=== PATIENT | female | born 1955 ===

== ENCOUNTER 2017-02-27 13:11 | Day surgery (SDC) | payer OTHER ==
[2017-02-27] MEDS ORDERED: Lidocaine 2% Inj (20ml) ONE (14:19)
[2017-02-27] MEDS ORDERED: Iodixanol 320 MG/ML 200 ML BOTTLE IV ONE (14:20)
[2017-02-27] MEDS ORDERED: Midazolam 2 MG/2 ML VIAL ONE (14:20)
[2017-02-27] MEDS ORDERED: Iohexol 350mgl/ml 50 ML ONE (14:20)
[2017-02-27 16:03] VITALS: BMI 27.4
[2017-02-27] MEDS ORDERED: Sodium Chloride 0.9% 1,000 ML IV SCH (17:30)
--- NOTE | 2017-02-27 17:30 | CP.SDSHP ---
Same Day Surgery H & P - History Proposed Procedure: please see enclosed H&P - Allergies Allergies: Allergies No Known Allergies Allergy (Verified 02/26/17 11:08) Short Stay Discharge - Short Stay Discharge Admitting Diagnosis/Reason for Visit: CHEST PAIN, TIA, ANXIETY Disposition: HOME/ ROUTINE
--- NOTE | 2017-02-27 17:38 | CP.PCM.PN ---
Subjective - Date & Time of Evaluation Date of Evaluation: 02/27/17 Time of Evaluation: 17:35 - Subjective Subjective: patient is s/p cardiac cath. patent stents. Objective - Medications Medications: Current Medications Sodium Chloride (Sodium Chloride 0.9%) 1,000 mls @ 100 mls/hr IV .Q10H ELOISE
[2017-02-27] MEDS ORDERED: Oxycodone/Acetaminophen 5/325 mg Tab PO STA (20:34)
[2017-02-27 23:19] VITALS: RESP 20; TEMP 98.1
[2017-02-27 23:33] VITALS: BP 153/82; PULSE 87; O2SAT 96
--- NOTE | 2017-03-01 10:35 | CARD ---
APPROVED REPORT Procedure(s) performed: Selective Right and Left Coronary Angiography Left Ventriculogram HISTORY 7 days), previous CVA remote >= 2 weeks, diabetes mellitus with insulin treatment , previous diagnostic cath, previous PCI (The PCI date was 10/07/2014), hypertension , dyslipidemia , cerebrovascular disease . INDICATION The indication(s) include : unstable angina . CASE TECHNIQUE The patient was brought electively to the Cardiac Catheterization Laboratory in a fasting state and was prepped and draped in a sterile manner. The was infiltrated with 2% Lidocaine subcutaneous without difficulty. Coronary angiography was performed using coronary diagnostic catheters. The left coronary system was accessed and visualized with a 6 Fr JL 4 catheter. The right coronary system was accessed and visualized with a 6 Fr JR 4 catheter. The left ventricle was accessed and visualized with a 6 Fr JR 4 catheter. Left ventriculogram was performed in TORRES projection. Hemostasis was obtained with manual pressure following sheath removal without any complications. The patient tolerated the procedure well and there were no complications associated with the procedure. Vessel Analysis The patient's coronary anatomy is left dominant. The left main coronary artery is a medium size vessel without stenosis. The left anterior descending artery is a medium size vessel . There is a 0% stenosis in the proximal segment. Thi svessel has been previously stented The first diagonal branch is a medium size vessel . There is a 50% stenosis in the ostial segment. The circumflex artery is a medium size vessel . The first obtuse marginal branch is a medium size vessel The previously placed stent is widely patent.. The left posterior descending artery is a small size vessel . There is a 50% stenosis in the ostial segment. The right coronary artery is a small size vessel with intimal irregularities. Left Ventricle The left ventricular ejection fraction is estimated to be 55%. There was no gradient across the aortic valve upon pullback. Conclusion Patent stents in the LAD and obtuse marginal artery. Normal left ventricular function. Recommendations Aggressive Medical Therapy Weight Loss Reduction Program
== END 2017-02-27 23:46 | disposition short-term general hospital (02) ==
LOC: CATH 13:11 → 2RSO 18:10 → CATH 23:46
PROVIDERS: ATTEND Internal Medicine Cardiovascular Disease
DX: I25.110 Atherosclerotic heart disease of native coronary artery with unstable angina pectoris (principal); Z95.5 Presence of coronary angioplasty implant and graft; F41.9 Anxiety disorder, unspecified; E78.5 Hyperlipidemia, unspecified; I10 Essential (primary) hypertension; E11.9 Type 2 diabetes mellitus without complications; Z79.4 Long term (current) use of insulin; Z86.73 Personal history of transient ischemic attack (TIA), and cerebral infarction without residual deficits
CPT/HCPCS: 82948; 93458; 99152; C1769; C2629; J1644; J2250; J3010; J7040 ×2

== ENCOUNTER 2018-09-27 10:12 | Inpatient (IN) | payer MEDICARE, OTHER ==
[2018-09-27] MEDS ORDERED: Sodium Chloride 0.9% 1,000 ML IV STA (10:52)
[2018-09-27 11:23] LABS: EOS # 0.1 (0.0-0.7); EOS % 0.6 % (1.5-5.0); GRAN # 14.57 (1.4-6.5); GRAN % 90.7 % (50.0-68.0); HEMOGLOBIN 13.2 g/dL (12.0-16.0); LYMPH % 5.9 % (22.0-35.0); MEAN CELL VOLUME 84.9 fl (80.0-105.0); MEAN CORPUSCULAR HEMOGLOBIN 28.9 pg (25.0-35.0); MEAN CORPUSCULAR HGB CONC 34.1 g/dl (31.0-37.0); MEAN PLATELET VOLUME 8.6 fl (7.0-11.0); MONO # 0.5 (0.1-0.6); MONO % 2.8 % (1.0-6.0); PLATELET COUNT 268 10^3/uL (120.0-450.0); RBC 4.56 10^6/uL (3.5-6.1); RED CELL DISTRIBUTION WIDTH 12.8 % (11.5-14.5); WHITE BLOOD COUNT 16.1 10^3/uL (4.5-11.0)
[2018-09-27 11:31] LABS: ALB/GLOB RATIO 1.1 (1.1-1.8); ALT/SGPT 30 U/L (7-56); AST/SGOT 22 U/L (14-36); BLOOD UREA NITROGEN 31 mg/dL (7-21); CALCIUM 9.8 mg/dL (8.4-10.5); GFR NON-AFRICAN AMERICAN 31; LIPASE 32 U/L (23-300)
--- NOTE | 2018-09-27 11:37 | ED PDOC ---
Arrival/HPI - General Chief Complaint: Abdominal Pain Time Seen by Provider: 09/27/18 10:28 Historian: Patient - History of Present Illness Narrative History of Present Illness (Text): 09/27/18 10:58 63 y/o female with PMH of CAD, HTN, CVA, DM, and SBO presents to the ED c/o upper abdominal pain x 2 days. Patient describes pain as sharp and located RUQ and LUQ with radiation to the umbilicus. Patient vomited once this morning before arrival to the ED. Vomit was brown and bitter, no blood. Associated bloating, decreased appetite, and constipation. Last BM 2 days ago, soft. Patient felt this way once before, last year, where she was admitted at [facility] (Former[facility]) for a SBO that was managed conservatively without surgery. Denies fever, chills, chest pain, SOB, dizziness, headache, back pain, urinary symptoms, or any other associated complaints. Past Medical History - Provider Review Nursing Documentation Reviewed: Yes - Infectious Disease Hx of Infectious Diseases: None - Cardiac Hx Cardiac Disorders: Yes Hx Hypertension: Yes Hx Pacemaker: No Other/Comment: stents x 2 - Pulmonary Hx Respiratory Disorders: Yes Hx Asthma: Yes - Neurological Hx Neurological Disorder: Yes HX Cerebrovascular Accident: Yes (nov 2014; left sided weakness) - HEENT Hx HEENT Disorder: Yes Other/Comment: EYES W/ PRESSURE - Renal Hx Renal Disorder: No - Endocrine/Metabolic Hx Endocrine Disorders: Yes Hx Diabetes Mellitus Type 2: Yes - Hematological/Oncological Hx Blood Disorders: No - Integumentary Hx Dermatological Disorder: No - Musculoskeletal/Rheumatological Hx Musculoskeletal Disorders: No Hx Falls: No - Gastrointestinal Hx Gastrointestinal Disorders: No - Genitourinary/Gynecological Hx Genitourinary Disorders: No - Psychiatric Hx Psychophysiologic Disorder: Yes Hx Depression: Yes Hx Substance Use: No - Surgical History Hx Appendectomy: Yes (1998) Hx Coronary Stent: Yes (x2 10/07/2014) Other/Comment: Fibroid uterus - Anesthesia Hx Anesthesia: Yes Hx Anesthesia Reactions: No Hx Malignant Hyperthermia: No - Suicidal Assessment Feels Threatened In Home Enviroment: No Family/Social History - Physician Review Nursing Documentation Reviewed: Yes Family/Social History: No Known Family HX Smoking Status: Never Smoked Hx Alcohol Use: No Hx Substance Use: No Allergies/Home Meds Allergies/Adverse Reactions: Allergies No Known Allergies Allergy (Verified 11/17/17 13:50) Home Medications: Home Meds Medication Instructions Recorded Confirmed amLODIPine [Norvasc] 10 mg PO DAILY 08/31/16 02/12/18 metFORMIN [glucOPHAGE] 1,000 mg PO BID 08/31/16 02/12/18 Aspirin [Aspirin Chewable] 81 mg PO DAILY 02/26/17 02/12/18 LORazepam [Ativan] 1 mg PO DAILY PRN 02/26/17 02/12/18 Review of Systems - Physician Review All systems were reviewed & negative as marked: Yes - Review of Systems Constitutional: Normal Eyes: Normal. absent: Vision Changes ENT: Normal. absent: Sore Throat, Sinus Congestion Respiratory: Normal. absent: SOB, Cough Cardiovascular: Normal. absent: Chest Pain, Palpitations, Syncope Gastrointestinal: Abdominal Pain, Constipation, Nausea, Vomiting, Food Intolerance. absent: Hematochezia, Hematemesis Genitourinary Female: Normal. absent: Dysuria, Frequency Musculoskeletal: Normal. absent: Arthralgias, Back Pain, Neck Pain Skin: Normal. absent: Rash, Skin Lesions Neurological: Normal. absent: Headache, Dizziness Endocrine: Normal Hemo/Lymphatic: Normal Psychiatric: Normal Physical Exam Vital Signs Reviewed: Yes Vital Signs Temp Pulse Resp BP Pulse Ox 09/27/18 10:12 98.2 F 94 H 20 176/97 H 98 Temperature: Afebrile Blood Pressure: Normal Pulse: Regular Respiratory Rate: Normal Appearance: Positive for: Well-Appearing, Non-Toxic, Comfortable Pain Distress: None Mental Status: Positive for: Alert and Oriented X 3 - Systems Exam Head: Present: Atraumatic, Normocephalic Pupils: Present: PERRL Extroacular Muscles: Present: EOMI Conjunctiva: Present: Normal Mouth: Present: Moist Mucous Membranes Neck: Present: Normal Range of Motion Respiratory/Chest: Present: Clear to Auscultation, Good Air Exchange. No: Respiratory Distress, Accessory Muscle Use Cardiovascular: Present: Regular Rate and Rhythm, Normal S1, S2. No: Murmurs Abdomen: Present: Tenderness (RUQ, LUQ), Distention (mild abdominal distension). No: Normal Bowel Sounds (hypoactive), Peritoneal Signs, Rebound, Guarding Back: Present: Normal Inspection. No: CVA Tenderness Upper Extremity: Present: Normal Inspection, Normal ROM, NORMAL PULSES, Capillary Refill < 2s. No: Cyanosis, Edema Lower Extremity: Present: Normal Inspection, NORMAL PULSES, Normal ROM, C apillary Refill < 2 s. No: Edema Neurological: Present: GCS=15, CN II-XII Intact, Speech Normal, Motor Func Grossly Intact, Normal Sensory Function, Gait Normal, Memory Normal Skin: Present: Warm, Dry, Normal Color. No: Rashes Lymphatic: No: Cervical Adenopathy Psychiatric: Present: Alert, Oriented x 3, Normal Insight, Normal Concentration, Normal Affect, Normal Mood Medical Decision Making ED Course and Treatment: Initial Plan: * CBC, CMP, Lipase * UA, culture * Troponin * EKG * CT Abd/Pelvis IV Contrast * Toradol * IVF * Zofran * Pepcid Called by CT: Creat 1.7 BUN 31 Unable to use IV contrast, will get CT with PO contrast CBC: leukocytosis, WBC 16.1 CMP: BUN 31, Creat 1.7, Glucose 235 Lipase: wnl UA: blood, leuk esterase, protein Troponin: neg CT Abd/Pelvis shows small bowel obstruction, will call salesperson surgical appliances and surgery skilled nursing professional. 15:00 Spoke with salesperson surgical appliances Nimco Rocha, who will evaluate patient in ED. Patient continues to c/o pain, IV Morphine ordered 15:[address] Sanchez, surgery. She will speak to the salesperson surgical appliances and review CT. NG Tube placed by surgery, placement confirmed by XR and presence of gastric bubbles. 17:20 Discussed case and diagnostic testing results with Dr. Mane, who accepts patient for inpatient admission to med/surg floor with diagnoses of small bowel obstruction, UTI, leukocytosis, renal failure. Recommends starting IV Levaquin and Metronidazole, NPO diet, and IVF at 100cc/hr. - Lab Interpretations Lab Results: 09/27/18 10:55 09/27/18 10:55 Lab Results 09/27/18 12:53: Urine Color Yellow, Urine Appearance Sl cloudy, Urine pH 6.0, Ur Specific [place] 1.025, Urine Protein 100 H, Urine Glucose (UA) Negative, Urine Ketones Negative, Urine Blood Trace-intact H, Urine Nitrate Negative, Urine Bilirubin Negative, Urine Urobilinogen 0.2, Ur Leukocyte Esterase Trace H, Urine RBC 0 - 2, Urine WBC 0 - 2, Ur Epithelial Cells 0 - 2 09/27/18 10:55: Sodium 138, Potassium 4.4, Chloride 102, Carbon Dioxide 30, Anion Gap 10, BUN 31 H, Creatinine 1.7 H, Est GFR ( Amer) 37, Est GFR (Non-Af Amer) 31, Random Glucose 235 H, Calcium 9.8, Total Bilirubin 0.8, AST 22, ALT 30, Alkaline Phosphatase 82, Troponin I < 0.01, Total Protein 7.8, Albumin 4.0, Globulin 3.7, Albumin/Globulin Ratio 1.1, Lipase 32 09/27/18 10:55: WBC 16.1 H, RBC 4.56, Hgb 13.2, Hct 38.7, MCV 84.9, MCH 28.9, MCHC 34.1, RDW 12.8, Plt Count 268, MPV 8.6, Gran % 90.7 H, Lymph % (Auto) 5.9 L , [place] % (Auto) 2.8, Eos % (Auto) 0.6 L, Baso % (Auto) 0.0, Gran # 14.57 H, Lymph # (Auto) 1.0 L, [place] # (Auto) 0.5, Eos # (Auto) 0.1, Baso # (Auto) 0.00, Neutrophils % (Manual) 96 H, Lymphocytes % (Manual) 3 L, Monocytes % (Manual) 1, Platelet Evaluation Normal I have reviewed the lab results: Yes - RAD Interpretation Narrative RAD Interpretations (Text): 09/27/18 15:33 PROCEDURE: CT Abdomen and Pelvis without IV contrast. HISTORY: abdominal pain, elevated creatinine COMPARISON: None available. TECHNIQUE: Contiguous axial images of the abdomen and pelvis. Oral contrast was admini stered. No IV contrast given. Coronal and Sagittal reformats generated and reviewed. Radiation dose: Total exam DLP = 879.31 mGy-cm. This CT exam was performed using one or more of the following dose reduction techniques: Automated exposure control, adjustment of the mA and/or kV according to patient size, and/or use of iterative reconstruction technique. FINDINGS: There is limited evaluation of the solid organs without the administration of IV contrast. LOWER THORAX: No visible consolidation, pleural effusion, or pneumothorax. Partially imaged cardiomegaly. Coronary artery calcifications. Mitral annulus calcification. LIVER: Unremarkable unenhanced appearance.. GALLBLADDER AND BILE DUCTS: Cholecystectomy. PANCREAS: Unremarkable unenhanced appearance. SPLEEN: Unremarkable unenhanced appearance.. ADRENALS: Mild bilateral adrenal gland hypertrophy. KIDNEYS AND URETERS: No hydronephrosis or obstructing renal calculus. BLADDER: The urinary bladder appears thick walled. REPRODUCTIVE: Uterus is present. APPENDIX: The appendix is not identified; correlate for history of appendectomy. BOWEL: The stomach is nondistended. Dilated loops of small bowel containing oral contrast noted within the mid abdomen which appears worrisome for small bowel obstruction. Fecalization of small bowel loops. Mesenteric edema. Oral contrast is not seen to enter the colon. Mild thickening/inflammatory changes at the level of the sigmoid colon; correlate clinically for possibility of colitis. PERITONEUM: Small pelvic free fluid. No definite free air. LYMPH NODES: No bulky lymphadenopathy identified. VASCULATURE: Atherosclerotic calcification of the aorta. No aortic aneurysm. BONES: No acute osseous abnormality is detected. OTHER FINDINGS: None. IMPRESSION: Small-bowel obstruction with dilated small bowel loops, fecalization of small bowel loops, and mesenteric edema. Point of obstruction resides within the left abdomen. Mild sigmoid colon wall thickening and inflammatory change suspected to reflect colitis. Small pelvic free fluid. Mild thick-walled urinary bladder. Recommend correlation with urinalysis. Additional findings as above. Radiology Orders: 09/27/18 10:55 ABD & PELVIS IV CONTRAST ONLY [CT] Stat Grey Stock Recorder: Radiologist - EKG Interpretation EKG Interpretation (Text): rate 86; NSR; normal intervals; no STEMI. Similar to past EKGs from 02/2018 and 11/2017. Reviewed by Dr. Antonio Interpreted by ED Physician: Yes Type: 12 lead EKG Comparison: Com.w/previous EKG - Medication Orders Current Medication Orders: Sodium Chloride (Sodium Chloride 0.9%) 1,000 mls @ 999 mls/hr IV .Q1H1M STA Stop: 09/27/18 11:52 Discontinued Medications Famotidine (Pepcid) 20 mg IVP STAT STA Stop: 09/27/18 10:53 Ondansetron HCl (Zofran Inj) 4 mg IVP STAT STA Stop: 09/27/18 10:53 Disposition/Present on Arrival - Present on Arrival Any Indicators Present on Arrival: No History of DVT/PE: No History of Uncontrolled Diabetes: No Urinary Catheter: No History of Decub. Ulcer: No History Surgical Site Infection Following: None - Disposition Have Diagnosis and Disposition been Completed?: Yes Diagnosis: Small bowel obstruction, UTI (urinary tract infection), Leukocytosis, Renal failure Disposition: HOSPITALIZED Disposition Time: 15:00 Patient Plan: Admission Patient Problems: Current Active Problems Problem Status Onset Leukocytosis Acute Renal failure Acute Small bowel obstruction Acute Urinary tract infection Acute Condition: STABLE
[2018-09-27 11:43] LABS: TROPONIN I < 0.01 ng/mL
[2018-09-27] MEDS ORDERED: Iohexol 240 (50 ml) ONE (11:51)
[2018-09-27 11:52] LABS: LYMPHOCYTE 3 % (22.0-35.0); MONOCYTE 1 % (1.0-6.0); NEUTROPHIL 96 % (50.0-70.0); PLATELET ESTIMATE NORMAL (NORMAL)
[2018-09-27 13:12] LABS: URINE BILIRUBIN NEGATIVE (NEGATIVE); URINE BLOOD TRACE-INTACT (NEGATIVE); URINE GLUCOSE (UA) NEGATIVE (NEGATIVE); URINE LEUKOCYTE ESTERASE TRACE Leu/uL (NEGATIVE); URINE PROTEIN 100 mg/dL (<30 mg/dL); URINE UROBILINOGEN 0.2 E.U./dL (<1 E.U./dL)
[2018-09-27 13:13] LABS: URINE APPEARANCE SL CLOUDY (CLEAR); URINE COLOR YELLOW (YELLOW)
[2018-09-27 13:18] LABS: URINE EPITHELIAL CELLS 0 - 2 /hpf (0-5); URINE RBC 0 - 2 /hpf (0-2); URINE WBC 0 - 2 /hpf (0-6)
[2018-09-27] MEDS ORDERED: Morphine 2 mg/ml ISec IVP STA (14:47)
--- NOTE | 2018-09-27 14:55 | CT ---
PROCEDURE: CT Abdomen and Pelvis without IV contrast. HISTORY: abdominal pain, elevated creatinine COMPARISON: None available. TECHNIQUE: Contiguous axial images of the abdomen and pelvis. Oral contrast was administered. No IV contrast given. Coronal and Sagittal reformats generated and reviewed. Radiation dose: Total exam DLP = 879.31 mGy-cm. This CT exam was performed using one or more of the following dose reduction techniques: Automated exposure control, adjustment of the mA and/or kV according to patient size, and/or use of iterative reconstruction technique. FINDINGS: There is limited evaluation of the solid organs without the administration of IV contrast. LOWER THORAX: No visible consolidation, pleural effusion, or pneumothorax. Partially imaged cardiomegaly. Coronary artery calcifications. Mitral annulus calcification. LIVER: Unremarkable unenhanced appearance.. GALLBLADDER AND BILE DUCTS: Cholecystectomy. PANCREAS: Unremarkable unenhanced appearance. SPLEEN: Unremarkable unenhanced appearance.. ADRENALS: Mild bilateral adrenal gland hypertrophy. KIDNEYS AND URETERS: No hydronephrosis or obstructing renal calculus. BLADDER: The urinary bladder appears thick walled. REPRODUCTIVE: Uterus is present. APPENDIX: The appendix is not identified; correlate for history of appendectomy. BOWEL: The stomach is nondistended. Dilated loops of small bowel containing oral contrast noted within the mid abdomen which appears worrisome for small bowel obstruction. Fecalization of small bowel loops. Mesenteric edema. Oral contrast is not seen to enter the colon. Mild thickening/inflammatory changes at the level of the sigmoid colon; correlate clinically for possibility of colitis. PERITONEUM: Small pelvic free fluid. No definite free air. LYMPH NODES: No bulky lymphadenopathy identified. VASCULATURE: Atherosclerotic calcification of the aorta. No aortic aneurysm. BONES: No acute osseous abnormality is detected. OTHER FINDINGS: None. IMPRESSION: Small-bowel obstruction with dilated small bowel loops, fecalization of small bowel loops, and mesenteric edema. Point of obstruction resides within the left abdomen. Mild sigmoid colon wall thickening and inflammatory change suspected to reflect colitis. Small pelvic free fluid. Mild thick-walled urinary bladder. Recommend correlation with urinalysis. Additional findings as above.
--- NOTE | 2018-09-27 16:28 | CP.PCM.CON ---
History of Present Illness - History of Present Illness History of Present Illness: Surgery Consult Note for Dr. Sanchez CC: abdominal pain w/ nausea and vomiting HPI: Patient is a 63 y/o female with PMHx of SBO last Nov 2017, CAD, CVA, HTN and DM who presented to the ED with abdominal pain associated with nausea and vomiting. Patient began to experience a 10/10 constant and sharp pain in the middle of her abdomen going up and down like a "digging knife" yesterday afternoon, 09/26. She experienced appetite loss as she only ate small bites of mashed potatoes and turkey for Thanksgiving dinner. Later that night, she was unable to fall asleep due to the pain. 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 She denies hematemesis. She also felt a lot of gas in her abdomen so attempted to have a BM this morning without success. Her last BM was two days ago, and it was soft but not much in volume. Patient feels constipated. Of note, patient felt the same way as when she was admitted to [facility] Nov 2017. Dr. Headley was the surgeon consulted. Her symptoms improved with an NGT and soap suds enemas. She ultimately did not need surgery and was discharged home after several days. ROS: as per HPI PMHx: SBO last Nov 2017 (see EMR), CAD s/p stent 2014, left sided CVA 2015, HTN, DM PSH: hysterectomy 2/2 fibroids 1998, appy 1998, 1986 (other child was vaginal before) FH: mother with asthma, father with COPD, both sisters with DM. Denies FHx of GI diseases/CA. Social hx: Denies EtOH, tobacco, and illicit drug use now or in the past. Meds: metformin 1000 mg (not daily - whenever blood sugar is high), norvasc 10 mg daily, aspirin 81 mg daily, ativan 1 mg PRN at night (hasn't taken > 1 mo) All: NKDA Review of Systems - Constitutional Constitutional: As Per HPI Past Patient History - Infectious Disease Hx of Infectious Diseases: None - Past Medical History & Family History Past Medical History?: Yes - Past Social History Smoking Status: Never Smoked - CARDIAC Hx Cardiac Disorders: Yes Hx Hypertension: Yes Hx Pacemaker: No Other/Comment: stents x 2 - PULMONARY Hx Respiratory Disorders: Yes Hx Asthma: Yes - NEUROLOGICAL Hx Neurological Disorder: Yes HX Cerebrovascular Accident: Yes (nov 2014; left sided weakness) - HEENT Hx HEENT Problems: Yes Other/Comment: EYES W/ PRESSURE - RENAL Hx Chronic Kidney Disease: No - ENDOCRINE/METABOLIC Hx Endocrine Disorders: Yes Hx Diabetes Mellitus Type 2: Yes - HEMATOLOGICAL/ONCOLOGICAL Hx Blood Disorders: No - INTEGUMENTARY Hx Dermatological Problems: No - MUSCULOSKELETAL/RHEUMATOLOGICAL Hx Musculoskeletal Disorders: No Hx Falls: No - GASTROINTESTINAL Hx Gastrointestinal Disorders: No - GENITOURINARY/GYNECOLOGICAL Hx Genitourinary Disorders: No - PSYCHIATRIC Hx Psychophysiologic Disorder: Yes Hx Depression: Yes Hx Substance Use: No - SURGICAL HISTORY Hx Appendectomy: Yes (1998) Hx Coronary Stent: Yes (x2 10/07/2014) Other/Comment: Fibroid uterus - ANESTHESIA Hx Anesthesia: Yes Hx Anesthesia Reactions: No Hx Malignant Hyperthermia: No Meds Allergies/Adverse Reactions: Allergies Allergy/AdvReac Type Severity Reaction Status Date / Time No Known Allergies Allergy Verified 11/17/17 13:50 Physical Exam - Constitutional Appears: Non-toxic Additional comments: Obese female resting in bed in a position, easily aroused - Head Exam Head Exam: ATRAUMATIC, NORMAL INSPECTION, NORMOCEPHALIC - Eye Exam Eye Exam: EOMI, Normal appearance - ENT Exam ENT Exam: Mucous Membranes Moist, Normal Exam - Neck Exam Neck exam: Positive for: Normal Inspection. Negative for: Lymphadenopathy - Respiratory Exam Respiratory Exam: Clear to Auscultation Bilateral, NORMAL BREATHING PATTERN - Cardiovascular Exam Cardiovascular Exam: REGULAR RHYTHM - GI/Abdominal Exam GI & Abdominal Exam: Distended, Firm, Hypoactive Bowel Sounds, Tenderness (tenderness to palpation RUQ, LUQ). absent: Hernia, Rebound, Soft - Extremities Exam Extremities exam: Positive for: normal inspection - Neurological Exam Neurological exam: Alert, Normal Gait, Oriented x3 - Psychiatric Exam Psychiatric exam: Normal Affect, Normal Mood - Skin Skin Exam: Dry, Intact, Normal Color, Warm Results - Vital Signs Recent Vital Signs: Last Vital Signs Temp 98.2 F 09/27/18 10:12 Pulse 88 09/27/18 14:30 Resp 18 09/27/18 14:30 BP 157/74 H 09/27/18 14:30 Pulse Ox 98 09/27/18 14:30 - Labs Result Diagrams: 09/27/18 10:55 09/27/18 10:55 Labs: Laboratory Results - last 24 hr 09/27/18 09/27/18 09/27/18 10:55 10:55 12:53 WBC 16.1 H RBC 4.56 Hgb 13.2 Hct 38.7 MCV 84.9 MCH 28.9 MCHC 34.1 RDW 12.8 Plt Count 268 MPV 8.6 Gran % 90.7 H Lymph % (Auto) 5.9 L [place] % (Auto) 2.8 Eos % (Auto) 0.6 L Baso % (Auto) 0.0 Gran # 14.57 H Lymph # (Auto) 1.0 L [place] # (Auto) 0.5 Eos # (Auto) 0.1 Baso # (Auto) 0.00 Neutrophils % (Manual) 96 H Lymphocytes % (Manual) 3 L Monocytes % (Manual) 1 Platelet Evaluation Normal Sodium 138 Potassium 4.4 Chloride 102 Carbon Dioxide 30 Anion Gap 10 BUN 31 H Creatinine 1.7 H Est GFR ( Amer) 37 Est GFR (Non-Af Amer) 31 Random Glucose 235 H Calcium 9.8 Total Bilirubin 0.8 AST 22 ALT 30 Alkaline Phosphatase 82 Troponin I < 0.01 Total Protein 7.8 Albumin 4.0 Globulin 3.7 Albumin/Globulin Ratio 1.1 Lipase 32 Urine Color Yellow Urine Appearance Sl cloudy Urine pH 6.0 Ur Specific [place] 1.025 Urine Protein 100 H Urine Glucose (UA) Negative Urine Ketones Negative Urine Blood Trace-intact H Urine Nitrate Negative Urine Bilirubin Negative Urine Urobilinogen 0.2 Ur Leukocyte Esterase Trace H Urine RBC 0 - 2 Urine WBC 0 - 2 Ur Epithelial Cells 0 - 2 Assessment & Plan - Assessment and Plan (Free Text) Assessment: 63 y/o female with recurrent SBO -CTAP w/ PO contrast on admission 09/27 showed SBO w/ dilated small bowel loops and fecalization. -NPO except meds/ice -s/p NGT insertion in the ED, gastric bubble sounds appreciated. Ordered X-ray to confirm placement. -soap suds enemas -morphine pain control -zofran for nausea/vomiting -monitor bowel function will discuss with Dr. Sanchez, attending Nimco Rocha DO PGY1
[2018-09-27] MEDS ORDERED: levoFLOXacin 750 mg in D5W 750 MG/150 ML BAG IVPB STA (17:14)
[2018-09-27] MEDS ORDERED: metroNIDAZOLE IV 500 mg/100 ml 500 MG/100 ML BAG IVPB STA (17:20)
[2018-09-27 17:26] LABS: INR 0.91; PARTIAL THROMBOPLASTIN TIME 30.9 Seconds (25.1-36.5); PROTHROMBIN TIME 10.3 SECONDS (9.4-12.5)
[2018-09-27] MEDS: Sodium Chloride 0.9% 1,000 ML IV SCH (17:40)
--- NOTE | 2018-09-27 17:59 | RAD ---
Date of service: 09/27/2018 HISTORY: NGT placement COMPARISON: No prior. FINDINGS: LUNGS: A nasogastric tube is been introduced terminating at the left upper quadrant abdomen. No active pulmonary disease. PLEURA: No significant pleural effusion identified, no pneumothorax apparent. CARDIOVASCULAR: Calcific atherosclerotic changes are seen related to the thoracic aorta. Cardiomegaly not excluded. Frontal technique limits evaluation. Technical magnification possible. No pulmonary vascular congestion. OSSEOUS STRUCTURES: No significant abnormalities. VISUALIZED UPPER ABDOMEN: Normal. OTHER FINDINGS: None. IMPRESSION: NG tube deployed as discussed above. No acute pulmonary disease appreciable. Prominent cardiac silhouette, potentially on the basis of frontal technique. Clinically correlate. No pulmonary vascular congestion.
[2018-09-27] MEDS: HYDROmorphone 0.5 mg/0.5 ml ISec IVP PRN (21:23)
[2018-09-28 00:12] VITALS: BMI 28.5
[2018-09-28] MEDS: HYDROmorphone 0.5 mg/0.5 ml ISec IVP PRN ×3 (04:58→20:50)
[2018-09-28] MEDS: Sodium Chloride 0.9% 1,000 ML IV SCH ×2 (05:08→21:32)
[2018-09-28 07:00] LABS: EOS # 0.2 (0.0-0.7); EOS % 2.8 % (1.5-5.0); GRAN # 6.48 (1.4-6.5); HEMOGLOBIN 10.6 g/dL (12.0-16.0); LYMPH # 1.1 (1.2-3.4); LYMPH % 12.7 % (22.0-35.0); MEAN CELL VOLUME 86.1 fl (80.0-105.0); MEAN CORPUSCULAR HEMOGLOBIN 27.9 pg (25.0-35.0); MEAN CORPUSCULAR HGB CONC 32.4 g/dl (31.0-37.0); MEAN PLATELET VOLUME 8.6 fl (7.0-11.0); MONO # 0.7 (0.1-0.6); MONO % 8.5 % (1.0-6.0); RBC 3.8 10^6/uL (3.5-6.1); RED CELL DISTRIBUTION WIDTH 12.8 % (11.5-14.5); WHITE BLOOD COUNT 8.5 10^3/uL (4.5-11.0)
--- NOTE | 2018-09-28 07:32 | CARD ---
APPROVED REPORT Date of service: 09/27/2018 EKG Measurement Heart [id number] <Conclusion> Normal sinus rhythm Minimal voltage criteria for LVH STTW changes Improved repolarization changes c/w ECG 10/07/14
--- NOTE | 2018-09-28 07:36 | CP.PCM.PN ---
Subjective - Date & Time of Evaluation Date of Evaluation: 09/28/18 Time of Evaluation: 07:10 - Subjective Subjective: Surgery Progress note. Dr. Sanchez Service Pt seen and examined at bedside. No acute events overnight. Denies any flatus or BMs since NGT placement. Still with mild abdominal discomfort. No further episodes of vomiting. NGT to suction with approximated 400cc of bilious output noted. No fevers or chills. No other complaints noted. Objective - Vital Signs/Intake and Output Vital Signs (last 24 hours): Temp Pulse Resp BP Pulse Ox 98.3 F 96 H 20 179/87 H 98 09/28/18 00:01 09/28/18 00:01 09/28/18 00:01 09/28/18 00:01 09/28/18 00:01 Intake and Output: 09/28/18 09/28/18 06:59 18:59 Intake Total 0 Balance 0 - Medications Medications: Current Medications Hydromorphone HCl (Dilaudid) 0.5 mg IVP Q4H PRN PRN Reason: Pain, Mild (1-3) Last Admin: 09/28/18 04:58 Dose: 0.5 mg Sodium Chloride (Sodium Chloride 0.9%) 1,000 mls @ 100 mls/hr IV .Q10H ELOISE Last Admin: 09/28/18 05:08 Dose: 100 mls/hr Ondansetron HCl (Zofran Inj) 4 mg IVP Q6 PRN PRN Reason: nausea/vomiting Pantoprazole Sodium (Protonix Inj) 40 mg IVP DAILY ELOISE - Labs Labs: 09/28/18 06:00 09/27/18 10:55 PT 10.3 SECONDS (9.4-12.5) 09/27/18 17:07 INR 0.91 09/27/18 17:07 APTT 30.9 Seconds (25.1-36.5) 09/27/18 17:07 - Constitutional Appears: Well, Non-toxic, No Acute Distress - Head Exam Head Exam: ATRAUMATIC, NORMAL INSPECTION, NORMOCEPHALIC - Eye Exam Eye Exam: EOMI, Normal appearance - ENT Exam ENT Exam: Mucous Membranes Moist - Respiratory Exam Respiratory Exam: NORMAL BREATHING PATTERN. absent: Accessory Muscle Use, Respiratory Distress - Cardiovascular Exam Cardiovascular Exam: absent: JVD - GI/Abdominal Exam GI & Abdominal Exam: Soft. absent: Distended, Firm, Guarding, Rigid, Rebound Additional comments: Mild tenderness to palpation diffusely. NGT in place to Low continuous suction at 80mmHg with approx 400cc bilious output noted. - Extremities Exam Extremities Exam: Normal Inspection. absent: Calf Tenderness - Neurological Exam Neurological Exam: Alert, Awake, Oriented x3 - Psychiatric Exam Psychiatric exam: Normal Affect, Normal Mood - Skin Skin Exam: Dry, Intact, Normal Color, Warm Assessment and Plan - Assessment and Plan (Free Text) Assessment: 63yo F with SBO - Maintain NPO. Okay to start ice chips - continue NGT to low continuous suction. Strict Is and Os - Chloreseptic spray for throat discomfort from NGT - May clamp NGT and have the patient ambulate. Encourage ambulation. Encourage OOBTC - Continue conservative mgmt for now Further recs as per Dr. Daniel Lea PGY2 surgery
[2018-09-28] MEDS ORDERED: Phenol Topical 1.4% Throat Spray (180 ml) MT PRN (07:39)
[2018-09-28 07:40] LABS: CALCIUM 8.8 mg/dL (8.4-10.5)
--- NOTE | 2018-09-28 17:12 | RAD ---
Date of service: 09/28/2018 HISTORY: SBO, compare for progression of contrast to colon COMPARISON: Chest x-ray performed 09/28/18, CT of the abdomen and pelvis without IV contrast performed 09/27/18 FINDINGS: BOWEL: Nasogastric tube extends to the expected location of the stomach, likely with distal most tip entering the duodenum. Oral contrast is seen within the colon. BONES: No acute osseous abnormality is detected. OTHER FINDINGS: None. IMPRESSION: Nasogastric tube extends to the expected location of the stomach, likely with distal most tip entering the duodenum. Oral contrast is seen within the colon.
--- NOTE | 2018-09-29 00:20 | HP ---
DATE OF EXAM: 09/28/2018 CHIEF COMPLAINT: Abdominal pain. HISTORY OF PRESENT ILLNESS: Ms. Sana Montano is a 63-year-old female with history of coronary artery disease, hypertension, severe diabetes mellitus, small bowel resection who came to the emergency room complaining of upper abdominal pain for today. The patient has had pain, it is sharp, located at the right upper quadrant and left upper quadrant with radiation to the umbilicus. The patient's vomiting was brown and bitter, no blood associated with bloating, decreased appetite, constipation, large bowel movement was 2 days ago associated with bloating. The patient felt this way once before last year, that time she was admitted to [facility] for small bowel obstruction and that was managed conservatively without surgery. No fever. No chills. No shortness of breath. No headache. No dizziness. No hematuria or hematochezia. PAST MEDICAL HISTORY: As above, hypertension, asthma, cerebrovascular accident, diabetes mellitus type 2, depression, appendectomy, coronary stent, fibroid uterus. FAMILY HISTORY: Father, mother noncontributory. HABITS: Never smoked. No drugs. No ethanol. ALLERGIES: THE PATIENT IS NOT ALLERGIC TO ANY MEDICATIONS. HOME MEDICATIONS: Norvasc, Glucophage, aspirin, Ativan. REVIEW OF SYSTEMS: The patient was seen and examined at the bedside. Has NG tube. It is draining actively. According to the patient, abdominal pain is getting better. No vision change. No sore throat. No sinus congestion. No shortness of breath, coughing. No chest pain, palpitation, syncope. No hematuria or hematochezia. Having abdominal pain, constipation. No nausea, vomiting, food intolerance. No dysuria, frequency. No arthralgia. No headache. No dizziness. PHYSICAL EXAMINATION VITAL SIGNS: Temperature 98.2, pulse 94, respiratory rate 20, blood pressure 170/97. HEENT: Head is normocephalic, atraumatic. Eyes; PERRLA. Extraocular muscles are intact. Conjunctivae clear. Nose patent. Mucous membranes moist. NECK: Supple. No carotid bruits. No JVD or thyromegaly. CHEST: Bilaterally symmetrical. CARDIOPULMONARY: S1 and S2 positive. LUNGS: Clear to auscultation. ABDOMEN: Soft. Tender in the upper quadrants. No organomegaly. EXTREMITIES: No edema. No cyanosis. NEUROLOGIC: The patient is awake and alert. Moving all 4 extremities. No focal deficit. LABORATORY DATA: White blood cells on admission was 16.8, repeat is 8.5, hemoglobin 10.6, hematocrit 32.7, platelets 221,000. Sodium 140, potassium 4.3, BUN 22, creatinine 1.3, glucose 137. ASSESSMENT AND PLAN: Ms. Sana Montano is a 63-year-old lady with leukocytosis, anemia, hyperchloremia, renal insufficiency, hyperglycemia, proteinuria, hematuria, urinary tract infection. Has CT scan of the abdomen and pelvis done, showed small bowel obstruction with dilated small bowel loops, fecalization of small bowel loops and mesenteric edema, point of obstruction resides within the left abdomen, mild sigmoid colon wall thickening and inflammatory changes, suspected of to reflect colitis as mild pelvic free air. Mild thick wall of the urinary bladder recommending coagulation with urinalysis and chest x-ray done today. Abdominal x-ray done, seen by the surgeon Dr. Meseret Sanchez. Nasogastric tube is placed, still with mild abdominal discomfort. No further episodes of vomiting. Nasogastric tube to suction with approximately 400 mL of output noted. Trying to give conservative treatment. Maintain the patient n.p.o. status, ice chips, continue nasogastric tube. nasogastric tube today. I will make the patient to work. According to patient, she passed one time only gas. The patient has history of coronary artery disease, hypertension, severe diabetes mellitus. We will continue present treatment. Gastrointestinal and deep venous thrombosis prophylaxis. Repeat labs. We will follow up. Karime Mane MD MTDShahnaz
[2018-09-29] MEDS: HYDROmorphone 0.5 mg/0.5 ml ISec IVP PRN ×3 (02:25→21:36)
[2018-09-29] MEDS: metroNIDAZOLE IV 500 mg/100 ml 500 MG/100 ML BAG IVPB SCH ×3 (06:10→21:37)
[2018-09-29 06:47] LABS: HEMOGLOBIN 11.2 g/dL (12.0-16.0); MEAN CELL VOLUME 86.4 fl (80.0-105.0); MEAN CORPUSCULAR HEMOGLOBIN 27.7 pg (25.0-35.0); MEAN CORPUSCULAR HGB CONC 32.1 g/dl (31.0-37.0); MEAN PLATELET VOLUME 8.9 fl (7.0-11.0); RBC 4.04 10^6/uL (3.5-6.1); RED CELL DISTRIBUTION WIDTH 12.7 % (11.5-14.5); WHITE BLOOD COUNT 9.1 10^3/uL (4.5-11.0)
[2018-09-29 07:03] LABS: IRON 35 ug/dL (45-180)
[2018-09-29 07:05] LABS: BLOOD UREA NITROGEN 16 mg/dL (7-21); CALCIUM 8.8 mg/dL (8.4-10.5); GFR NON-AFRICAN AMERICAN 50; HDL CHOLESTEROL 44 mg/dL (29-60)
[2018-09-29 07:07] LABS: LDL CHOLESTEROL 106 mg/dL (0-129)
[2018-09-29 07:12] LABS: % IRON SATURATION 17 % (20-55); TOTAL IRON BINDING CAPACITY 210 ug/dL (265-497)
--- NOTE | 2018-09-29 07:52 | CP.PCM.PN ---
Subjective - Date & Time of Evaluation Date of Evaluation: 09/29/18 Time of Evaluation: 07:49 - Subjective Subjective: Surgery: Dr. Sanchez Patient reports multiple episodes of flatus last night. She denies n/v. NGT clamped through the night and tolerated. Requesting to have NGT removed. Objective - Vital Signs/Intake and Output Vital Signs (last 24 hours): Temp Pulse Resp BP Pulse Ox 97.9 F 111 H 20 179/87 H 96 09/29/18 06:00 09/29/18 06:00 09/29/18 06:00 09/29/18 06:00 09/29/18 06:00 Intake and Output: 09/29/18 09/29/18 06:59 18:59 Intake Total 120 Balance 120 - Medications Medications: Current Medications Hydromorphone HCl (Dilaudid) 0.5 mg IVP Q4H PRN PRN Reason: Pain, Mild (1-3) Last Admin: 09/29/18 02:25 Dose: 0.5 mg Sodium Chloride (Sodium Chloride 0.9%) 1,000 mls @ 100 mls/hr IV .Q10H ELOISE Last Admin: 09/28/18 21:32 Dose: 100 mls/hr Levofloxacin/Dextrose (Levaquin 500mg) 500 mg in 100 mls @ 100 mls/hr IVPB DAILY ELOISE; Protocol Metronidazole (Flagyl) 500 mg in 100 mls @ 100 mls/hr IVPB Q8 ELOISE; Protocol Last Admin: 09/29/18 06:10 Dose: 100 mls/hr Ondansetron HCl (Zofran Inj) 4 mg IVP Q6 PRN PRN Reason: nausea/vomiting Pantoprazole Sodium (Protonix Inj) 40 mg IVP DAILY ELOISE Last Admin: 09/28/18 10:13 Dose: 40 mg Phenol/Menthol (Phenaseptic 1.4% Throat [place]) 0 ml MT Q2H PRN PRN Reason: Sore Throat - Labs Labs: 09/29/18 06:00 09/29/18 06:00 PT 10.3 SECONDS (9.4-12.5) 09/27/18 17:07 INR 0.91 09/27/18 17:07 APTT 30.9 Seconds (25.1-36.5) 09/27/18 17:07 - Constitutional Appears: Non-toxic, No Acute Distress - Head Exam Head Exam: ATRAUMATIC, NORMOCEPHALIC - Eye Exam Eye Exam: EOMI, Normal appearance - ENT Exam ENT Exam: Mucous Membranes Moist - Respiratory Exam Respiratory Exam: NORMAL BREATHING PATTERN. absent: Respiratory Distress - Cardiovascular Exam Cardiovascular Exam: REGULAR RHYTHM. absent: Tachycardia - GI/Abdominal Exam GI & Abdominal Exam: Soft. absent: Distended, Guarding, Tenderness, Rebound - Extremities Exam Extremities Exam: Normal Inspection. absent: Calf Tenderness - Neurological Exam Neurological Exam: Alert, Awake - Psychiatric Exam Psychiatric exam: Normal Affect, Normal Mood - Skin Skin Exam: Normal Color, Warm Assessment and Plan - Assessment and Plan (Free Text) Assessment: 63 y/o F w/ SBO now resolved Plan: -NGT removed -ok for CLD -ADAT slowly -monitor for bowel movement -OOB -once on regular diet and having bowel movements can be cleared for d/c -further recs per Dr. Regina DIGGSsharon PGY4
[2018-09-29] MEDS: Sodium Chloride 0.9% 1,000 ML IV SCH ×2 (09:19→20:11)
[2018-09-29] MEDS: levoFLOXacin 500 mg in D5W 500 MG/100 ML BAG IVPB SCH (09:22)
--- NOTE | 2018-09-29 15:02 | PN ---
DATE: 09/29/2018 SUBJECTIVE: The patient was seen and examined on the bedside on 09/29/2018, looking comfortable. NG tube is out. Has multiple episodes of flatus. Denies nausea or vomiting. NG tube was clamped throughout the night and tolerated very well. Nurse told me the patient has tachycardia and blood pressure is high. We started metoprolol and put consult with the case briefer. No fever. No chills. No hematuria or hematochezia. PHYSICAL EXAMINATION: VITAL SIGNS: Temperature 97.9, pulse 111, respiratory rate 20, blood pressure 179/87, pulse oximetry 96. HEENT: Head normocephalic, atraumatic. Eyes PERRLA. Extraocular muscles intact. Conjunctivae clear. Nose patent. NECK: Supple. No carotid bruit. No JVD or thyromegaly. CHEST: Bilaterally symmetrical. HEART: S1 and S2 positive. LUNGS: Clear to auscultation. ABDOMEN: Soft. Bowel sounds positive. No organomegaly. EXTREMITIES: No edema. No cyanosis. NEUROLOGICAL: The patient is awake and alert. Moving all 4 extremities. No focal deficits. MEDICATIONS: Dilaudid, NS, levofloxacin, Flagyl, Zofran, Protonix, LABORATORY DATA: White blood cells are 9.1, hemoglobin 11.2, hematocrit 34.9, platelets 235. Sodium 142, chloride 110, carbon dioxide 23, BUN 16, creatinine 1.1, glucose 119. ASSESSMENT AND PLAN: Ms. Sana Montano, a 63-year-old lady with anemia, hyperchloremia, hyperglycemia. Came with small bowel obstruction. Seen by the Surgery. Nasogastric tube was placed, was clamped the whole night. The patient tolerated very well. Passed the flatus. Removed the nasogastric tube. Out of bed, physical therapy. Has history of tachycardia. Put Cardiology consult. X-ray of the abdomen done. Abdomen and pelvis CT done. The patient has a history of coronary artery disease, hypertension, cerebrovascular accident, diabetes mellitus. We will give food and check on that. Gastrointestinal, deep venous thrombosis prophylaxis. Repeat labs. We will follow up. Karime Mane MD [facility] # [id number] MTDD
[2018-09-29 21:24] LABS: FOLATE 9.1 ng/mL
--- NOTE | 2018-09-29 21:25 | CON ---
DATE OF CONSULTATION: 09/29/2018 REASON FOR CONSULTATION: History of coronary artery disease, status post coronary artery stenting in the past as well as abnormal EKG. HISTORY OF PRESENT ILLNESS: The patient is a 63-year-old female, who has a history of longstanding diabetes mellitus, diabetic neuropathy, history of CVA in the past, presents because of abdominal pain, nausea and vomiting, as well as distention, and was diagnosed with small bowel obstruction. The patient was kept n.p.o. with nasogastric tube suction with subsequent improvement and nasogastric tube was removed today. The patient denies any chest pain or abdominal pain at this time. PAST MEDICAL HISTORY: Diabetes mellitus, diabetic neuropathy, coronary artery stenting in the past, history of fibroid surgery in 1998. SOCIAL HISTORY: Nonsmoker, nondrinker. 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 MEDICATIONS: Dilaudid 0.25 mg intravenously every 4 hours, Flagyl 500 mg intravenously every 8 hours, Levaquin 500 mg intravenously daily, Lopressor 25 mg twice a day, Protonix 20 mg intravenously, normal saline at 100 mL an hour, Zofran 4 mg intravenously every 6 hours p.r.n. PHYSICAL EXAMINATION: GENERAL: The patient is a middle-aged female, who does not appear to be in acute distress. VITAL SIGNS: Blood pressure 179/87, heart rate 111, temperature 97.9, respirations 20. HEENT: Normocephalic. CHEST: Clear. HEART: S1 and S2, regular. ABDOMEN: Mild epigastric tenderness. EXTREMITIES: No edema. LABORATORY DATA: Hemoglobin and hematocrit of 11.1 and 34.9, white count and platelet count are within normal limits. Today's SMA-7: Sodium 142, potassium 3.9, chloride 110, CO2 of 23, glucose 119, BUN 16, creatinine 1.1. Lipid profile is within normal limits. TSH level is within normal limits. Hemoglobin A1c is 7.5. PT, PTT, and INR are within normal limits. Abdomen and pelvis CT scan with p.o. contrast only revealed stomach nondistended. Dilated loops of the small bowel containing oral contrast noted within the mid abdomen, which appears worrisome for small bowel obstruction. Fecalization of the small bowel loops. Mesenteric edema. The final impression was a small bowel obstruction with dilated small bowel loops, fecalization of the small bowel loops and mesenteric edema. Point of structure resides within the left abdomen. EKG revealed sinus rhythm at rate of 86, minimal voltage criteria for LVH, ST-T wave changes, improved repolarization changes compared with EKG of 2014. ASSESSMENT: 1. Status post small bowel obstruction. 2. Improved acute renal insufficiency. 3. Uncontrolled diabetes mellitus. 4. Coronary artery disease with history of coronary artery stenting in 2013. RECOMMENDATIONS: I did review the most recent echocardiograph study from 02/2018, which revealed mild concentric LVH with normal ejection fraction with grade 1 abnormal relaxation pattern. Continue current IV Flagyl at 500 mg every 8 hours and IV Levaquin 500 mg intravenously daily. Continue Lopressor 25 mg twice a day. Vinicio Nunez MD
[2018-09-30] MEDS: HYDROmorphone 0.5 mg/0.5 ml ISec IVP PRN (04:32)
[2018-09-30] MEDS: Sodium Chloride 0.9% 1,000 ML IV SCH (04:35)
[2018-09-30] MEDS: metroNIDAZOLE IV 500 mg/100 ml 500 MG/100 ML BAG IVPB SCH ×3 (05:23→21:17)
[2018-09-30] MEDS ORDERED: Potassium Ch 20mEq in D5-1/2NS 1,000 ML IV SCH (07:30)
--- NOTE | 2018-09-30 07:45 | CP.PCM.PN ---
Subjective - Date & Time of Evaluation Date of Evaluation: 09/30/18 Time of Evaluation: 07:42 - Subjective Subjective: General Surgery Progress Note for Dr. Sanchez 63F seen and evaluated at bedside this morning. No acute events overnight. No complaints this morning. Patient states she feels a lot better. No BM today. Passing flatus and voiding. Pain is well controlled. Denies f/c, n/v/d, abdominal pain, SOB, CP, or urinary symptoms. Objective - Vital Signs/Intake and Output Vital Signs (last 24 hours): Temp Pulse Resp BP Pulse Ox 98.9 F 89 20 184/86 H 98 09/29/18 22:00 09/30/18 05:52 09/29/18 22:00 09/30/18 05:52 09/29/18 22:00 Intake and Output: 09/30/18 09/30/18 06:59 18:59 Intake Total 540 Balance 540 - Medications Medications: Current Medications Hydromorphone HCl (Dilaudid) 0.25 mg IVP Q4H PRN PRN Reason: Pain, severe (8-10) Last Admin: 09/30/18 04:32 Dose: 0.25 mg Levofloxacin/Dextrose (Levaquin 500mg) 500 mg in 100 mls @ 100 mls/hr IVPB DAILY [facility]; Protocol Last Admin: 09/29/18 09:22 Dose: 100 mls/hr Metronidazole (Flagyl) 500 mg in 100 mls @ 100 mls/hr IVPB Q8 ELOISE; Protocol Last Admin: 09/30/18 05:23 Dose: 100 mls/hr Potassium Chloride/Dextrose/Sod Cl (Potassium Chl 20 Meq In D5-1/2ns) 1,000 mls @ 100 mls/hr IV .Q10H [facility] Metoprolol Tartrate (Lopressor) 25 mg PO BID [facility] Last Admin: 09/30/18 05:52 Dose: 25 mg Ondansetron HCl (Zofran Inj) 4 mg IVP Q6 PRN PRN Reason: nausea/vomiting Pantoprazole Sodium (Protonix Inj) 40 mg IVP DAILY [facility] Last Admin: 09/29/18 09:22 Dose: 40 mg Phenol/Menthol (Phenaseptic 1.4% Throat [place]) 0 ml MT Q2H PRN PRN Reason: Sore Throat - Labs Labs: 09/29/18 06:00 09/29/18 06:00 PT 10.3 SECONDS (9.4-12.5) 09/27/18 17:07 INR 0.91 09/27/18 17:07 APTT 30.9 Seconds (25.1-36.5) 09/27/18 17:07 - Constitutional Appears: Well, Non-toxic, No Acute Distress - Head Exam Head Exam: ATRAUMATIC, NORMAL INSPECTION, NORMOCEPHALIC - Eye Exam Eye Exam: EOMI - ENT Exam ENT Exam: Mucous Membranes Moist - Respiratory Exam Respiratory Exam: NORMAL BREATHING PATTERN - GI/Abdominal Exam GI & Abdominal Exam: Soft, Normal Bowel Sounds. absent: Distended, Tenderness - Neurological Exam Neurological Exam: Alert, Awake - Psychiatric Exam Psychiatric exam: Normal Affect, Normal Mood - Skin Skin Exam: Dry, Intact, Normal Color, Warm Assessment and Plan - Assessment and Plan (Free Text) Assessment: 63F w/ small bowel obstruction Plan: Continue IVF - D5 1/2w/20meQK @100 Continue IV Abx Advanced diet to Full liquids as tolerated Continue to monitor bowel function Further medical management per primary team Can be discharged once tolerating diet No further surgical intervention at this present time Eleuterio Arciniega PGY1
--- NOTE | 2018-09-30 10:13 | PN ---
DATE: 09/30/2018 SUBJECTIVE: The patient is feeling well. No more nausea. No more abdominal pain. She is passing gas. She is able to take p.o. PHYSICAL EXAMINATION: VITAL SIGNS: Stable. Her blood pressure is 183/86 75. NECK: Negative JVD. LUNGS: Without rales. HEART: S1, S2. EXTREMITIES: Without edema. LABORATORY: Hemoglobin is 11.2, white count is normal. Glucose is 103. IMPRESSION: 1. Status post small bowel obstruction which is now resolved. 2. Hypertension. 3. Coronary artery disease. 4. History of percutaneous transluminal coronary angioplasty and stent in the past. PLAN: Given these findings, we will restart her aspirin and Norvasc for blood pressure. Her Plavix will be discontinued. At the patient's request, we will transfer her care over to [facility]. We will reevaluate her coronary arteries with a stress test later in the near future. Flavio Perez MD
[2018-09-30] MEDS: levoFLOXacin 500 mg in D5W 500 MG/100 ML BAG IVPB SCH (10:24)
--- NOTE | 2018-10-01 00:04 | PN ---
DATE: 09/30/2018 SUBJECTIVE: Patient is a 63-year-old female. Patient was seen and examined at the bedside on 09/30/2018, looking comfortable. No acute event overnight. No complaints. Passes the gas, but not had bowel movement yet. Pain is well controlled. Denies nausea, vomiting. No chest pain. No palpitation. No fever. No chills. PHYSICAL EXAMINATION VITAL SIGNS: Temperature 98.9, pulse 89, respiratory rate 20, blood pressure 184/86, pulse oximetry 98. HEENT: Head: Normocephalic, atraumatic. Eyes: PERRLA. Extraocular muscles are intact. Conjunctivae clear. Nose patent. NECK: Supple. No carotid bruits, JVD, thyromegaly. CHEST: Bilaterally symmetrical. HEART: S1, S2 positive. LUNGS: Clear to auscultation. ABDOMEN: Soft. Bowel sounds present. No organomegaly. EXTREMITIES: No edema. No cyanosis. NEUROLOGIC: Patient is awake, alert. Follows simple commands. MEDICATIONS: Hydromorphone, Levaquin, metronidazole, IV fluid, metoprolol, Zofran, Protonix. LABORATORY DATA: White blood cell is 9.1, hemoglobin 11.2, hematocrit 34.9, platelets 235,000. Sodium 142, potassium 3.9, BUN 16, creatinine 1.1, glucose 119. ASSESSMENT AND PLAN: Ms. Sana Montano, 63-year-old lady, with anemia, hyperchloremia, hyperglycemia, came with small bowel obstruction, got IV fluid, antibiotics. Advance diet from full liquid to soft diet as tolerated. Was waiting for bowel movement. Evaluated surgical team's input. According to them, no surgical intervention. Seen by Dr. Flavio Perez for tachycardia, status post history of coronary artery disease, history of percutaneous transluminal coronary angioplasty, and stent in the past. Continue aspirin and Norvasc for blood pressure. 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 Jennifer Durand. After discharge, she will go there for followup. Meanwhile, continue present treatment. Repeat labs. Karime Mane MD [facility] # [id number] JULISSA
[2018-10-01] MEDS ORDERED: HYDROmorphone 0.5 mg/0.5 ml ISec IVP STA (00:56)
[2018-10-01] MEDS: metroNIDAZOLE IV 500 mg/100 ml 500 MG/100 ML BAG IVPB SCH (05:32)
[2018-10-01 07:15] LABS: HEMOGLOBIN 11.6 g/dL (12.0-16.0); MEAN CELL VOLUME 82.2 fl (80.0-105.0); MEAN PLATELET VOLUME 8.4 fl (7.0-11.0); RBC 4.15 10^6/uL (3.5-6.1); RED CELL DISTRIBUTION WIDTH 12.6 % (11.5-14.5); WHITE BLOOD COUNT 7.6 10^3/uL (4.5-11.0)
[2018-10-01 07:24] LABS: BLOOD UREA NITROGEN 12 mg/dL (7-21); CALCIUM 9.1 mg/dL (8.4-10.5); GFR NON-AFRICAN AMERICAN 50
[2018-10-01] MEDS ORDERED: Pantoprazole 40 mg EC Tab PO SCH (07:30)
[2018-10-01 08:35] VITALS: PULSE 81; RESP 20; TEMP 97.8; O2SAT 99
[2018-10-01] MEDS: levoFLOXacin 500 mg in D5W 500 MG/100 ML BAG IVPB SCH ×2 (09:20→09:27)
[2018-10-01 09:24] VITALS: BP 178/80
[2018-10-01] MEDS ORDERED: Pneumococcal 23-Valent Vaccine IM ONE (10:19)
[2018-10-01] MEDS ORDERED: Influenza Vaccine 60 mcg/0.5 mL SYR (4YR UP) IM ONE (10:19)
--- NOTE | 2018-10-02 08:14 | DS ---
10/01/18 CHIEF COMPLAINT: Nausea, vomiting, and abdominal pain. HISTORY OF PRESENT ILLNESS: Ms. Racquel Montano 63-year-old lady with history of multiple medical problems, came with abdominal pain, nausea, and vomiting, admitted the patient, and surgical consult called, they put G-tube. The patient was on active suction, improved. Clear liquid started and tolerated. Gave soft liquid. The patient did flatus and feeling better. Discharged home with follow up with medical doctor. PAST MEDICAL HISTORY: As above, hypertension, asthma, cerebrovascular accident, diabetes mellitus type 2, appendectomy, coronary stents, and fibroid uterus. FAMILY HISTORY: Father and mother noncontributory. HABITS: No smoking. No drugs. No ethanol. ALLERGIES: THE PATIENT IS NOT ALLERGIC WITH ANY MEDICATIONS. HOME MEDICATIONS: Norvasc, Glucophage, aspirin, and Ativan. REVIEW OF SYSTEMS: The patient was seen and examined at the bedside, looking comfortable. NG tube has food, tolerated food very well, passed the gas, and feeling better. PHYSICAL EXAMINATION: VITAL SIGNS: Temperature 97.8, pulse 51, blood pressure 117/80, and respiratory rate 18. HEENT: Head: Normocephalic and atraumatic. Eyes: PERRLA. Extraocular muscles are intact. Conjunctivae clear. Nose patent. Mucous membranes moist. NECK: Supple. No carotid bruits, JVD or thyromegaly. CHEST: Bilaterally symmetrical. HEART: S1 and S2 positive. LUNGS: Clear to auscultation. ABDOMEN: Soft. Bowel sounds present. No organomegaly. EXTREMITIES: No edema. No cyanosis. NEUROLOGICAL: The patient is awake and alert. Moving all 4 extremities. No focal deficit. LABORATORY DATA: White blood cells 7.3, hemoglobin 11.2, hematocrit 34.1, and platelets 259,000. ASSESSMENT AND PLAN: Ms. Racquel Montano is a 63-year-old lady with leukopenia, anemia, hyperglycemia, proteinuria, hematuria, and urinary tract infection. , surgical consult called. They put nasogastric tube, patient improved. Cervical cord decompression, removed the nasogastric tube. We started on lequid , advance diet as tolerated. The patient was discharged home. Follow up with primary care physician. Karime Mane MD [facility] # [id number] JULISSA
== END 2018-10-01 12:01 | disposition home or self-care (01) | DRG 389 ==
LOC: ED 10:12 → ERH 15:38 → 5RNO 19:01
PROVIDERS: ADMIT Internal Medicine; ATTEND Internal Medicine
PROC: 3E02340 Introduction of Influenza Vaccine into Muscle, Percutaneous Approach (ICD-10-PCS; principal; 2018-10-01)
PROC: 3E0234Z Introduction of Serum, Toxoid and Vaccine into Muscle, Percutaneous Approach (ICD-10-PCS; 2018-10-01)
DX: K56.609 Unspecified intestinal obstruction, unspecified as to partial versus complete obstruction (principal); N17.9 Acute kidney failure, unspecified; N39.0 Urinary tract infection, site not specified; I25.10 Atherosclerotic heart disease of native coronary artery without angina pectoris; I10 Essential (primary) hypertension; E11.40 Type 2 diabetes mellitus with diabetic neuropathy, unspecified; E11.65 Type 2 diabetes mellitus with hyperglycemia; Z86.73 Personal history of transient ischemic attack (TIA), and cerebral infarction without residual deficits; D64.9 Anemia, unspecified; E87.8 Other disorders of electrolyte and fluid balance, not elsewhere classified; D72.819 Decreased white blood cell count, unspecified; Z23 Encounter for immunization; Z87.09 Personal history of other diseases of the respiratory system; Z82.5 Family history of asthma and other chronic lower respiratory diseases; Z83.3 Family history of diabetes mellitus; Z90.49 Acquired absence of other specified parts of digestive tract; Z95.5 Presence of coronary angioplasty implant and graft; Z90.710 Acquired absence of both cervix and uterus